=== PATIENT | male | born 1965 | race African-American/Black ===

== ENCOUNTER 2016-11-19 14:22 | Emergency (ER) | payer BC ==
[~2016-11-19] VITALS: Ht 172.7 cm; Wt 104.3 kg
[2016-11-19] MEDS ORDERED: IV NORMAL SALINE 1000ML BAG 1,000 ML IV SCH (14:32)
[2016-11-19] MEDS ORDERED: ONDANSETRON PF 4 MG/2 ML VIAL. IV ONE (14:45)
[2016-11-19] MEDS ORDERED: KETOROLAC TROMETHAMINE 30 MG/ML INJ. IV ONE (14:45)
[2016-11-19] MEDS ORDERED: HYDROmorphone 2 MG/ML VIAL IV ONE (14:45)
[2016-11-19 15:06] LABS: BASO % 1 % (0-3); EOS % 1 % (0-3); HEMATOCRIT 44.8 % (39.0-53.0); HEMOGLOBIN 14.9 g/dL (13.0-17.5); LYMPH # 0.8 x10^3/uL (1.0-4.8); LYMPH % 17 % (24-48); MEAN CORPUSCULAR HEMOGLOBIN 29 pg (25-35); MEAN CORPUSCULAR HGB CONC 33 g/dL (31-37); MEAN CORPUSCULAR VOLUME 86 fL (79-100); MONO % 12 % (0-9); NEUT % 70 % (31-73); PLATELET COUNT 182 x10^3/uL (140-400); RED BLOOD COUNT 5.22 x10^6/uL (4.30-5.70); RED CELL DISTRIBUTION WIDTH 12.7 % (11.5-14.5)
--- NOTE | 2016-11-19 15:20 | EKG ---
[facility] [address] [place] [address] Test Date: 2016-11-19 Test Time: 15:00:55 Pat Name: MONY AGUILAR Department: Room: Gender: M [employer] Supervisor: : [id number] Requested By: ARIELLE CONTRERAS Order Number: [id number] Reading MD: Measurements Intervals [place] Rate: 58 P: 63 NM: 180 QRS: 23 QRSD: 88 T: 37 QT: 394 QTc: 390 Interpretive Statements SINUS RHYTHM QRS(T) CONTOUR ABNORMALITY CONSIDER ANTEROSEPTAL MYOCARDIAL DAMAGE RI6.01 Unconfirmed report No previous ECG available for comparison
[2016-11-19 15:40] LABS: CALCIUM 9.5 mg/dL (8.5-10.1); CREATININE 1.6 mg/dL (0.7-1.3); POTASSIUM 4.3 mmol/L (3.5-5.1)
[2016-11-19 15:46] LABS: ALBUMIN 3.9 g/dL (3.4-5.0); TOTAL BILIRUBIN 2.7 mg/dL (0.2-1.0); TOTAL PROTEIN 7.7 g/dL (6.4-8.2)
[2016-11-19] MEDS ORDERED: IOHEXOL 300 MG/ML 75 ML VIAL IV ONE (16:00)
[2016-11-19] MEDS ORDERED: CONTRAST GIVEN MC PRN (16:00)
--- NOTE | 2016-11-19 17:17 | RAD ---
Indication abdominal pain. Vomiting. Axial images to the abdomen and pelvis were obtained. Approximately 75 cc of Omnipaque 300 was administered intravenously. No oral contrast was administered. No prior imaging is available. The lung bases are clear. There are healed left inferior posterior rib fractures. No abnormality is seen in the liver and the gallbladder appears grossly normal. There is mild splenomegaly. The spleen is otherwise unremarkable. No pancreatic abnormality is seen. No adrenal or significant renal anomaly is seen. There are minute bilateral renal calculi. There is no hydronephrosis hydroureter or calcification seen along the course of either ureter. No acute finding is apparent in the abdomen. Occasional diverticula are seen associated with the large bowel. Active inflammation is not seen. No acute finding is apparent. The appendix is seen in the right lower quadrant and appears unremarkable. There are degenerative changes in the lumbar spine. IMPRESSION: No acute finding seen in the abdomen or pelvis.
[2016-11-19 17:22] LABS: BILIRUBIN,URINE NEGATIVE (NEG); GLUCOSE,URINE NEGATIVE (NEG); NITRITE,URINE NEGATIVE (NEG); PH,URINE 7.5; PROTEIN,URINE NEGATIVE (NEG-TRACE)
[2016-11-19 17:33] LABS: BACTERIA,URINE 0 /HPF (0-FEW); RBC,URINE 0 /HPF (0-2); SQUAMOUS EPITHELIAL CELL,UR OCC /LPF
--- NOTE | 2016-11-19 18:11 | PHYS DOC ---
Past Medical History Past Medical History: Other Additional Past Medical Histor: STOMACH ULCERS Past Surgical History: No Surgical History Alcohol Use: Occasionally Drug Use: None Adult General Chief Complaint Chief Complaint: ABDOMINAL PAIN HPI HPI 21-year-old male with no prior abdominal history now complaining of upper abdominal pain today with nausea. Pain is worst in the upper abdomen and right upper quadrant. No fevers chills sweats or shaking chills. Pain is worse with movement and palpation. Normal bowel and bladder habits. No chest pain or shortness of air Review of Systems Review of Systems Constitutional: Denies fever or chills [] Eyes: Denies change in visual acuity, redness, or eye pain [] HENT: Denies nasal congestion or sore throat [] Respiratory: Denies cough or shortness of breath [] Cardiovascular: No additional information not addressed in HPI [] GI: Denies abdominal pain, nausea, vomiting, bloody stools or diarrhea [] : Denies dysuria or hematuria [] Musculoskeletal: Denies back pain or joint pain [] Integument: Denies rash or skin lesions [] Neurologic: Denies headache, focal weakness or sensory changes [] Endocrine: Denies polyuria or polydipsia [] Current Medications Current Medications Current Medications Medications (Trade) Dose Ordered Sig/Manuel Start Time Stop Time Status Last Admin Dose Admin Hydromorphone HCl (Dilaudid) 1 mg 1X ONCE 11/19/16 14:45 11/19/16 15:08 DC 11/19/16 15:25 1 MG Info (Do NOT chart on this entry -- for MONITORING) 1 each PRN DAILY PRN 11/19/16 16:00 11/21/16 15:59 Iohexol (Omnipaque 300 Mg/ml) 60 ml 1X ONCE 11/19/16 16:00 11/19/16 16:01 DC Ketorolac Tromethamine (Toradol) 30 mg 1X ONCE 11/19/16 14:45 11/19/16 15:08 DC 11/19/16 15:18 30 MG Ondansetron HCl (Zofran) 4 mg 1X ONCE 11/19/16 14:45 11/19/16 15:08 DC 11/19/16 15:20 4 MG Sodium Chloride 1,000 ml @ 1,000 mls/hr Q1H 11/19/16 14:32 11/19/16 15:31 DC 11/19/16 15:16 1,000 MLS/HR Allergies Allergies Allergies Coded Allergies Type Severity Reaction Last Updated Verified No Known Drug Allergies 11/19/16 No Physical Exam Physical Exam Middle-aged -[place] male obese distress complaining of upper abdominal pain with tenderness epigastrium and right upper quadrant. No guarding or rebound. Positive bowel sounds. Remainder of abdomen benign. Patient with purulent penile discharge with nontender scrotum and contents no inguinal adenopathy no perennial pain or tenderness Constitutional: Well developed, well nourished, no acute distress, non-toxic appearance. [] HENT: Normocephalic, atraumatic, bilateral external ears normal, oropharynx moist, no oral exudates, nose normal. [] Eyes: PERRLA, EOMI, conjunctiva normal, no discharge. [] Neck: Normal range of motion, no tenderness, supple, no stridor. [] Cardiovascular:Heart rate regular rhythm, no murmur [] Lungs & Thorax: Bilateral breath sounds clear to auscultation [] Abdomen: Bowel sounds normal, soft, no tenderness, no masses, no pulsatile masses. [] Skin: Warm, dry, no erythema, no rash. [] Back: No tenderness, no CVA tenderness. [] Extremities: No tenderness, no cyanosis, no clubbing, ROM intact, no edema. [] Neurologic: Alert and oriented X 3, normal motor function, normal sensory function, no focal deficits noted. [] Psychologic: Affect normal, judgement normal, mood normal. [] Current Patient Data Vital Signs Vital Signs Date Time Temp Pulse Resp B/P (MAP) Pulse Ox O2 Delivery O2 Flow Rate FiO2 11/19/16 15:45 20 98 11/19/16 15:27 108 164/80 (108) Room Air 11/19/16 14:29 98.6 98.6 Lab Values Laboratory Tests Test 11/19/16 14:50 11/19/16 17:16 White Blood Count 5.0 x10^3/uL (4.0-11.0) Red Blood Count 5.22 x10^6/uL (4.30-5.70) Hemoglobin 14.9 g/dL (13.0-17.5) Hematocrit 44.8 % (39.0-53.0) Mean Corpuscular Volume 86 fL (79-100) Mean Corpuscular Hemoglobin 29 pg (25-35) Mean Corpuscular Hemoglobin Concent 33 g/dL (31-37) Red Cell Distribution Width 12.7 % (11.5-14.5) Platelet Count 182 x10^3/uL (140-400) Neutrophils (%) (Auto) 70 % (31-73) Lymphocytes (%) (Auto) 17 % (24-48) L Monocytes (%) (Auto) 12 % (0-9) H Eosinophils (%) (Auto) 1 % (0-3) Basophils (%) (Auto) 1 % (0-3) Neutrophils # (Auto) 3.5 x10^3uL (1.8-7.7) Lymphocytes # (Auto) 0.8 x10^3/uL (1.0-4.8) L Monocytes # (Auto) 0.6 x10^3/uL (0.0-1.1) Eosinophils # (Auto) 0.1 x10^3/uL (0.0-0.7) Basophils # (Auto) 0.0 x10^3/uL (0.0-0.2) Sodium Level 144 mmol/L (136-145) Potassium Level 4.3 mmol/L (3.5-5.1) Chloride Level 104 mmol/L (98-107) Carbon Dioxide Level 31 mmol/L (21-32) Anion Gap 9 (6-14) Blood Urea Nitrogen 9 mg/dL (8-26) Creatinine 1.6 mg/dL (0.7-1.3) H Estimated GFR (Cockcroft-Gault) 55.0 BUN/Creatinine Ratio 6 (6-20) Glucose Level 105 mg/dL (70-99) H Calcium Level 9.5 mg/dL (8.5-10.1) Total Bilirubin 2.7 mg/dL (0.2-1.0) H Aspartate Amino Transferase (AST) 58 U/L (15-37) H Alanine Aminotransferase (ALT) 45 U/L (16-63) Alkaline Phosphatase 102 U/L (46-116) Total Protein 7.7 g/dL (6.4-8.2) Albumin 3.9 g/dL (3.4-5.0) Albumin/Globulin Ratio 1.0 (1.0-1.7) Lipase 116 U/L (73-393) Urine Color [place] Urine Clarity Clear Urine pH 7.5 Urine Specific [place] >=1.030 Urine Protein Negative mg/dL (NEG-TRACE) Urine Glucose (UA) Negative mg/dL (NEG) Urine Ketones (Stick) Negative mg/dL (NEG) Urine Blood Negative (NEG) Urine Nitrite Negative (NEG) Urine Bilirubin Negative (NEG) Urine Urobilinogen Dipstick 1.0 mg/dL (0.2 mg/dL) Urine Leukocyte Esterase Moderate (NEG) Urine RBC 0 /HPF (0-2) Urine WBC 5-10 /HPF (0-4) Urine Squamous Epithelial Cells Occ /LPF Urine Bacteria 0 /HPF (0-FEW) Urine Mucus Slight /LPF Laboratory Tests 11/19/16 14:50 Laboratory Tests 11/19/16 14:50 EKG EKG [] Radiology/Procedures Radiology/Procedures [] Course & Med Decision Making Course & Med Decision Making Pertinent Labs and Imaging studies reviewed. (See chart for details) Signs and symptoms consistent with suspected biliary colic versus pancreatitis in a male with no prior history of either denies significant alcohol intake. Pain in the epigastrium and right upper quadrant resolved on reexam. Patient's bilirubin elevated at 2.7. Creatinine 1.6. CT the abdomen and pelvis unremarkable. Biliary colic as patient's pain is resolved on reevaluation. We will ultrasound to assess status of possible biliary obstruction for appropriate referral. Vital signs stable. [] Dragon Disclaimer Dragon Disclaimer This electronic medical record was generated, in whole or in part, using a voice recognition dictation system. Departure Departure Disposition: 01 HOME, SELF-CARE Condition: IMPROVED Referrals: NO PCP (PCP) Patient Instructions: Abdominal Pain, Chronic Renal Insufficiency, Urethritis, Adult Additional Instructions: Is not entirely clear what was causing her abdominal pain today. He did not have any visible gallstones and the CAT scan of her abdomen was unremarkable. Her bilirubin which is a liver enzyme was elevated at 2.7. Uric kidney function was slightly abnormal with a creatinine of 1.6. We have treated U for urethritis which means a sexually transmitted disease with a penile discharge. Your treatment for the sexually-transmitted diseases complete but be aware that any sexual partners need to be treated as well. Follow-up with the health department reevaluation and full STD screening. Return immediately for new severe or worsening symptoms ARIELLE CONTRERAS MD Nov 19, 2016 18:11
--- NOTE | 2016-11-19 18:53 | RAD ---
INDICATION: abd pain, vomiting x 12 hrs, elevated bili COMPARISON: None. TECHNIQUE: Grayscale and color ultrasound images obtained through the abdomen. FINDINGS: Aorta/IVC: Visualized portion unremarkable. Pancreas: Visualized portions unremarkable. Portions of pancreas not well seen. Liver: Echotexture within normal limits. Gallbladder: No definite stones or wall thickening. Common Bile Duct: 6 mm Right Kidney: No hydronephrosis. IMPRESSION: Common bile duct measures near the upper limits of normal without definite gallstones visualized. Electronically signed by: Nash Colbert MD (11/19/2016 6:50 PM) [facility]
[2016-11-19] MEDS ORDERED: AZITHROMYCIN 250 MG TABLET. PO ONE (19:00)
[2016-11-19] MEDS ORDERED: cefTRIAXone IM 250 MG VIAL IM ONE (19:00)
[2016-11-19 20:20] VITALS: BP 107/60
== END 2016-11-19 20:20 | disposition home or self-care (01) ==
LOC: ER 14:22
DX: R10.11 Right upper quadrant pain (principal); R10.13 Epigastric pain; R11.0 Nausea; E66.9 Obesity, unspecified; Z68.35 Body mass index [BMI] 35.0-35.9, adult; Z87.19 Personal history of other diseases of the digestive system
CPT/HCPCS: 36415; 74177; 76705; 80053; 81001; 83690; 85027; 93005; 96361; 96372; 96374; 96375; 99285; J0696; J1170; J1885; J2405; J7030; Q0144; Q9967

== ENCOUNTER 2017-05-03 18:49 | Emergency (ER) | payer BC ==
[2017-05-03] MEDS: HYDROcodone/APAP 5/325MG 1 TAB TABLET PO (19:20)
[2017-05-03 19:31] LABS: ADD MAN DIFF? NO
[2017-05-03 19:33] LABS: BASO % 0 % (0-3); EOS % 3 % (0-3); HEMATOCRIT 42.4 % (39.0-53.0); HEMOGLOBIN 13.8 g/dL (13.0-17.5); LYMPH # 1.2 x10^3/uL (1.0-4.8); LYMPH % 28 % (24-48); MEAN CORPUSCULAR HEMOGLOBIN 29 pg (25-35); MEAN CORPUSCULAR HGB CONC 33 g/dL (31-37); MEAN CORPUSCULAR VOLUME 87 fL (79-100); MONO % 14 % (0-9); NEUT % 54 % (31-73); PLATELET COUNT 169 x10^3/uL (140-400); RED BLOOD COUNT 4.86 x10^6/uL (4.30-5.70); RED CELL DISTRIBUTION WIDTH 12.7 % (11.5-14.5); WHITE BLOOD COUNT 4.2 x10^3/uL (4.0-11.0)
[2017-05-03 19:56] LABS: URIC ACID 7.2 mg/dL (3.5-7.2)
== END 2017-05-03 20:32 | disposition home or self-care (01) ==
LOC: ER 18:49
DX: M10.9 Gout, unspecified (principal)
CPT/HCPCS: 36415; 73110; 84550; 85025; 99285

== ENCOUNTER 2017-09-19 17:40 | Emergency (ER) | payer BC ==
[2017-09-19 18:24] LABS: BILIRUBIN,URINE NEGATIVE (NEG); CLARITY,URINE CLEAR; COLOR,URINE YELLOW; GLUCOSE,URINE NEGATIVE (NEG); NITRITE,URINE NEGATIVE (NEG); PH,URINE 5.5; PROTEIN,URINE NEGATIVE (NEG-TRACE); UROBILINOGEN,URINE 0.2 mg/dL (0.2 mg/dL)
[2017-09-19 18:31] LABS: BACTERIA,URINE 0 /HPF (0-FEW); RBC,URINE 0 /HPF (0-2); WBC,URINE RARE /HPF (0-4)
[2017-09-19] MEDS: HYDROcodone/APAP 5/325MG 1 TAB TABLET PO (19:41)
== END 2017-09-19 19:48 | disposition home or self-care (01) ==
LOC: ER 19:48
DX: N50.812 Left testicular pain (principal)
CPT/HCPCS: 76870; 81001; 99285

== ENCOUNTER 2017-09-23 09:09 | Emergency (ER) | payer BC ==
[2017-09-23 10:40] LABS: ADD MAN DIFF? NO
[2017-09-23 10:57] LABS: ETHANOL < 10 mg/dL (0-10)
[2017-09-23 10:59] LABS: ANION GAP 5 (6-14); BLOOD UREA NITROGEN 16 mg/dL (8-26); BUN/CREATININE RATIO 11 (6-20); CARBON DIOXIDE 33 mmol/L (21-32); CHLORIDE 107 mmol/L (98-107); CREATININE 1.4 mg/dL (0.7-1.3); GFR 63.9; GLUCOSE 97 mg/dL (70-99); POTASSIUM 4.2 mmol/L (3.5-5.1); SODIUM 145 mmol/L (136-145)
[2017-09-23 11:04] LABS: ALBUMIN 3.8 g/dL (3.4-5.0); ALBUMIN/GLOBULIN RATIO 1.2 (1.0-1.7); ALK PHOS 76 U/L (46-116); ALT (SGPT) 29 U/L (16-63); AST (SGOT) 22 U/L (15-37); LIPASE 72 U/L (73-393); TOTAL BILIRUBIN 1.1 mg/dL (0.2-1.0)
[2017-09-23] MEDS: PANTOPRAZOLE IV PUSH 40 MG VIAL. IVP (11:09)
[2017-09-23] MEDS: ONDANSETRON PF 4 MG/2 ML VIAL. IV (11:09)
[2017-09-23] MEDS: IV NORMAL SALINE 1000ML BAG 1,000 ML IV (11:09)
[2017-09-23] MEDS: KETOROLAC 30 MG/ML INJ. IV (11:10)
[2017-09-23 11:11] LABS: BASO % 0 % (0-3); EOS # 0.1 x10^3/uL (0.0-0.7); EOS % 2 % (0-3); HEMOGLOBIN 14.6 g/dL (13.0-17.5); LYMPH # 0.6 x10^3/uL (1.0-4.8); LYMPH % 15 % (24-48); MEAN CORPUSCULAR HEMOGLOBIN 30 pg (25-35); MEAN CORPUSCULAR HGB CONC 34 g/dL (31-37); MEAN CORPUSCULAR VOLUME 87 fL (79-100); MONO # 0.4 x10^3/uL (0.0-1.1); MONO % 11 % (0-9); NEUT # 2.7 x10^3uL (1.8-7.7); NEUT % 72 % (31-73); PLATELET COUNT 148 x10^3/uL (140-400); RED BLOOD COUNT 4.95 x10^6/uL (4.30-5.70); RED CELL DISTRIBUTION WIDTH 12.6 % (11.5-14.5); WHITE BLOOD COUNT 3.8 x10^3/uL (4.0-11.0)
== END 2017-09-23 12:30 | disposition home or self-care (01) ==
LOC: ER 09:09
DX: S39.012A Strain of muscle, fascia and tendon of lower back, initial encounter (principal); R11.2 Nausea with vomiting, unspecified; X50.0XXA Overexertion from strenuous movement or load, initial encounter; Y93.89 Activity, other specified; Y92.89 Other specified places as the place of occurrence of the external cause; Y99.8 Other external cause status
CPT/HCPCS: 36415; 72100; 80053; 83690; 85025; 96361; 96374; 96375; 99284; 99285; C9113; G0480; J1885; J2405; J7030